=== PATIENT | female | born 1935 | race African-American/Black ===

== ENCOUNTER → 2016-10-23 | Outpatient (CLI) | payer MEDICARE, OTHER ==
[2016-07-13 15:00] VITALS: BP 135/73
[~2016-10-23] MED LIST: MULT-475 PO
== END | disposition home or self-care (01) ==
LOC: RT 07:46
PROVIDERS: ATTEND Psychiatry & Neurology Neurology
DX: R41.3 Other amnesia (principal)
CPT/HCPCS: 95816

== ENCOUNTER 2017-10-15 11:13 | Emergency (ER) | payer MEDICARE, OTHER ==
[2017-10-15 11:56] LABS: BILIRUBIN,URINE NEGATIVE (NEG); CLARITY,URINE CLEAR; COLOR,URINE YELLOW; GLUCOSE,URINE NEGATIVE (NEG); NITRITE,URINE NEGATIVE (NEG); PROTEIN,URINE NEGATIVE (NEG-TRACE)
[2017-10-15] MEDS: IV NORMAL SALINE 1000ML BAG 1,000 ML IV (12:02)
[2017-10-15 12:13] LABS: ADD MAN DIFF? NO
[2017-10-15 12:15] LABS: BACTERIA,URINE 0 /HPF (0-FEW); SQUAMOUS EPITHELIAL CELL,UR MOD /LPF; WBC,URINE OCC /HPF (0-4)
[2017-10-15 12:19] LABS: BASO % 0 % (0-3); EOS % 0 % (0-3); HEMATOCRIT 30.6 % (36.0-47.0); HEMOGLOBIN 10.5 g/dL (12.0-15.5); LYMPH # 0.8 x10^3/uL (1.0-4.8); LYMPH % 10 % (24-48); MEAN CORPUSCULAR HEMOGLOBIN 30 pg (25-35); MEAN CORPUSCULAR HGB CONC 34 g/dL (31-37); MEAN CORPUSCULAR VOLUME 88 fL (79-100); MONO # 0.4 x10^3/uL (0.0-1.1); MONO % 5 % (0-9); NEUT # 6.7 x10^3uL (1.8-7.7); NEUT % 85 % (31-73); PLATELET COUNT 277 x10^3/uL (140-400); RED BLOOD COUNT 3.47 x10^6/uL (3.50-5.40); RED CELL DISTRIBUTION WIDTH 13.5 % (11.5-14.5); WHITE BLOOD COUNT 7.9 x10^3/uL (4.0-11.0)
[2017-10-15 12:39] LABS: ANION GAP 9 (6-14); BLOOD UREA NITROGEN 33 mg/dL (7-20); BUN/CREATININE RATIO 22 (6-20); CALCIUM 9.2 mg/dL (8.5-10.1); CARBON DIOXIDE 27 mmol/L (21-32); CHLORIDE 106 mmol/L (98-107); CREATININE 1.5 mg/dL (0.6-1.0); GLUCOSE 141 mg/dL (70-99); POTASSIUM 3.8 mmol/L (3.5-5.1); SODIUM 142 mmol/L (136-145)
[2017-10-15 12:44] LABS: NT-PRO BNP 586 pg/mL (0-449)
[2017-10-15 12:44] LABS: ALBUMIN 3.8 g/dL (3.4-5.0); ALK PHOS 68 U/L (46-116); ALT (SGPT) 29 U/L (14-59); AST (SGOT) 25 U/L (15-37); CKMB MASS 0.7 ng/mL (0.0-3.6); CREATINE KINASE 64 U/L (26-192); MAGNESIUM 2.1 mg/dL (1.8-2.4); TOTAL BILIRUBIN 0.5 mg/dL (0.2-1.0); TOTAL PROTEIN 7.5 g/dL (6.4-8.2)
[2017-10-15 12:46] LABS: TROPONINI < 0.017 ng/mL (0.000-0.055)
== END 2017-10-15 13:30 | disposition home or self-care (01) ==
LOC: ER 11:13
DX: E86.0 Dehydration (principal); R53.1 Weakness
CPT/HCPCS: 36415; 71045; 80053; 81001; 82553; 83605; 83735; 83880; 84484; 85025; 87086; 93005; 96360; 99285-25; J7030

== ENCOUNTER 2017-11-21 09:29 | Emergency (ER) | payer MEDICARE, OTHER ==
[~2017-11-21] VITALS: Ht 167.6 cm; Wt 68.5 kg
[2017-11-21 09:33] VITALS: BP 114/59
[2017-11-21] MEDS ORDERED: MINE120C TP (10:23)
[2017-11-21] MEDS ORDERED: HYDR25TA PO (10:23)
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
== END 2017-11-21 10:30 | disposition home or self-care (01) ==
LOC: ER 09:29
DX: L85.3 Xerosis cutis (principal); I10 Essential (primary) hypertension; Z88.0 Allergy status to penicillin
CPT/HCPCS: 99284

== ENCOUNTER 2018-01-02 08:43 | Emergency (ER) | payer MEDICARE, OTHER ==
[~2018-01-02] VITALS: Ht 167.6 cm; Wt 59.4 kg
[~2018-01-02 08:43] MED LIST changes: +HYDR25TA PO; +MINE120C TP
[2018-01-02 09:02] VITALS: BP 132/76
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
--- NOTE | 2018-01-02 10:29 | RAD ---
EXAM: Left lower extremity venous Doppler sonogram. HISTORY: Pain and swelling. TECHNIQUE: Pruitt scale and color Doppler sonographic evaluation of the left lower extremity veins with spectral waveform analysis was performed. FINDINGS: There is normal color flow, normal compressibility and there are normal spectral waveforms in the left lower extremity veins. IMPRESSION: No Doppler evidence of lower extremity deep venous thrombosis. Electronically signed by: Lucila Scott MD (01/02/2018 10:25 AM) [place] [id number]
[2018-01-02] MEDS ORDERED: CEPH500C PO (11:05)
== END 2018-01-02 11:15 | disposition home or self-care (01) ==
LOC: ER 08:43
DX: L03.116 Cellulitis of left lower limb (principal); I10 Essential (primary) hypertension; Z88.0 Allergy status to penicillin
CPT/HCPCS: 93971; 99284-25